=== PATIENT | female | born 1975 | race American Indian/Alaskan Native ===

== ENCOUNTER 2017-01-01 12:42 | Emergency (ER) | payer SELFPAY ==
[2017-01-01 12:52] VITALS: BP 136/84
[2017-01-01 13:28] LABS: Basophils % (Auto) 0.3 % (0.0-1.8); Eosinophils % (Auto) 0.4 % (0.0-4.3); Hemoglobin 12.1 gm/dl (10.1-14.3); Mean Corpuscular HGB Conc 34 % (30-34); Mean Corpuscular Hemoglobin 28 pg (28-32); Mean Corpuscular Volume 82 fl (79-97); Platelet Count 239 K/mm3 (140-440); Red Blood Count 4.39 M/mm3 (3.65-5.03); Red Cell Distribution Width 13.2 % (13.2-15.2); White Blood Count 4.1 K/mm3 (4.5-11.0)
[2017-01-01 13:35] LABS: Anion Gap 18 mmol/L; Blood Urea Nitrogen 6 mg/dL (7-17); Calcium 9.1 mg/dL (8.4-10.2); Carbon Dioxide 23 mmol/L (22-30); Chloride 103.1 mmol/L (98-107); Glucose 101 mg/dL (65-100); Sodium 140 mmol/L (137-145)
--- NOTE | 2017-01-01 16:44 | Emergency Department Report ---
HPI - General Chief Complaint: Weakness Time Seen by Provider: 01/01/17 16:32 - HPI HPI: This is a 41-year-old -[place] female presents to the emergency department with complaint of a 2 to three-day history of some generalized weakness and/or dizziness as if she is going to pass out, but has never done so. She denies any headache, vision change, chest pain, shortness of breath and at this point she denies any of the previously mentioned symptoms and is asymptomatic. She does not have any past medical or surgical history. She has not taken anything for her symptoms prior to presentation. She denies any alcohol, tobacco or illicit drug use or abuse. No recent travel or sick contacts at home. She says that there is no chance of being as she has not had intercourse in many years and does not want to be checked. At this point the patient is asking for discharge home and says she just needs a note for work. ED Past Medical Hx - Past Medical History Previous Medical History?: No - Surgical History Past Surgical History?: No - Social History Smoking Status: Never Smoker Substance Use Type: Alcohol ED Review of Systems ROS: Stated complaint: DIZZY,WEAK Other details as noted in HPI Comment: All other systems reviewed and negative Constitutional: denies: chills, fever Eyes: denies: eye pain, eye discharge, vision change ENT: denies: ear pain, throat pain Respiratory: denies: cough, shortness of breath, wheezing Cardiovascular: denies: chest pain, palpitations Gastrointestinal: denies: abdominal pain, nausea, diarrhea Genitourinary: denies: urgency, dysuria, discharge Musculoskeletal: denies: back pain, joint swelling, arthralgia Skin: denies: rash, lesions Neurological: other (dizziness). denies: headache, weakness, paresthesias Physical Exam - Physical Exam Vital Signs: Vital Signs 01/01/17 01/01/17 12:49 15:26 Temperature 98.6 F Pulse Rate 78 Respiratory 17 18 Rate Blood Pressure 136/84 O2 Sat by Pulse 100 100 Oximetry Physical Exam: GENERAL: The patient is well-developed well-nourished. HENT: Normocephalic. Atraumatic. Patient has moist mucous membranes. EYES: Extraocular motions are intact. Pupils equal reactive to light bilaterally. No nystagmus. NECK: Supple. Trachea is midline. CHEST/LUNGS: Clear to auscultation. There is no respiratory distress noted. HEART/CARDIOVASCULAR: Regular. There is no tachycardia. There is no gallop rub or murmur. ABDOMEN: Abdomen is soft, nontender. Patient has normal bowel sounds. There is no abdominal distention. SKIN: Skin is warm and dry. NEURO: The patient is awake, alert, and oriented. The patient is cooperative. The patient has no focal neurologic deficits. The patient has normal speech and gait. Cranial nerves II through XII grossly intact. MUSCULOSKELETAL: There is no tenderness or deformity. There is no limitation range of motion. There is no evidence of acute injury. ED Course Vital Signs 01/01/17 01/01/17 12:49 15:26 Temperature 98.6 F Pulse Rate 78 Respiratory 17 18 Rate Blood Pressure 136/84 O2 Sat by Pulse 100 100 Oximetry ED Medical Decision Making - Lab Data Result diagrams: 01/01/17 12:55 01/01/17 12:55 - EKG Data -: EKG Interpreted by Me EKG shows normal: sinus rhythm, axis, intervals, QRS complexes, ST-T waves Rate: normal - EKG Data When compared to previous EKG there are: previous EKG unavailable Interpretation: normal EKG - Medical Decision Making 41-year-old female presents with a few days of some generalized weakness and/or dizziness. However currently she is asymptomatic and asking for discharge home. Labs are unremarkable. EKG does not show any ST elevation [place], ischemia or dysrhythmia. She does not have any complaints of vaginal bleeding or dysuria , abdominal pain or low back pain and the patient says she is certain that she has not and does not want to be checked for it. Vital signs stable. She was encouraged to follow up with a primary care physician and return to the ER with any worsening of her symptoms or any acute distress. - Differential Diagnosis thyroid dysfunction, , hypoglycemia, TIA Critical Care Time: No Critical care attestation.: If time is entered above; I have spent that time in minutes in the direct care of this critically ill patient, excluding procedure time. ED Disposition Clinical Impression: Dizziness Disposition: DC-01 TO HOME OR SELFCARE Is pt being admited?: No Condition: Stable Instructions: Near Syncope (ED), Lightheadedness (ED), Dizziness (ED) Additional Instructions: Please follow up with a primary care physician in the next few days. Return to the emergency Department with any worsening of your symptoms are any acute distress. Referrals: RIOS FRANKLIN MD [Staff Physician] - 3-5 Days [facility] [Outside] - 3-5 Days Forms: Work/School Release Form(ED) Time of Disposition: 16:44
== END 2017-01-01 16:44 | disposition home or self-care (01) ==
LOC: ED 12:42
DX: R42 Dizziness and giddiness (principal)
CPT/HCPCS: 36415; 80048; 81025; 85025; 93005; 93010